=== PATIENT | male | born 1955 | race Caucasian/White ===

== ENCOUNTER 2025-01-09 17:05 | Emergency (ER) | payer MEDICARE ==
[~2025-01-09] VITALS: Ht 182.9 cm; Wt 94.6 kg
[2025-01-09 17:12] VITALS: BP 152/103; PULSE 139; RESP 16; TEMP 98.6; O2SAT 98
[2025-01-09] MEDS ORDERED: LOP25T PO (17:36)
--- NOTE | 2025-01-09 17:36 | Physician Documentation ---
HPI ~ General Chief Complaint: Medication Refill Stated Complaint: MED REQUEST Time Seen by MD: 17:32 History of Present Illness HPI Comments [age] year male who presents to the emergency department requesting a prescription refill until he returns to [facility] in a couple of days. Patient takes metoprolol 12.5 mg twice a day and has been without his medication for one day. Presents to the emergency department with tachycardia and has not had his morning dose. No associated symptoms such as shortness of breath, palpitations and/or near-syncope. Reports does well while taking his medications. Looks forward to returning back to his home state and just a couple of days. Medication Reconciliation Allergies: Coded Allergies: No Known Allergies (Unverified , 01/09/25) Scheduled Metoprolol Tartrate* (Lopressor tablet*), 0.5 TABLET PO BID Review of Systems All Other Systems at this time: Reviewed and Negative Physical Exam Physical Exam Vital Signs: RN Vital Signs have been reviewed: Yes, Temperature: 98.6, Source: Oral, Heart Rate: 139, Respiratory Rate: 16, BP: 152/103, Pulse Oximetry: 98, W eight: 94.600 Oxygen Flow Rate: 0 General Appearance: alert, WD/WN, no apparent distress Pupils/EOM/Fundus: PERRLA Oropharynx: normal inspection Neck: trachea midline Respiratory: no respiratory distress Cardiovascular: tachycardia Gastrointestinal: non-tender Extremities: normal inspection Neurologic: oriented x4 Motor / Sensory: no motor deficit Thought/Hallucinations: normal thought pattern Affect: appropriate Skin: warm/dry, normal color Progress Results/Orders Results/Orders Vital Signs 01/09/25 17:12 Temp 98.6 Pulse 139 Resp 16 B/P (MAP) 152/103 Pulse Ox 98 O2 Flow Rate 0 Medical Decision Making Additional information obtaine: old records Findings Examination history obtained. We will provide patient with breakthrough medication refill prescription. No clinical suspicion for hypertensive urgency, hypertensive emergency your tachycardia other than an known etiology. Patient's safely discharged in the emergency department to obtain prescriptions. Differential Dx:Considerations: Include: Adverse circumstances, Economic, Psychosocial, Medical services unavail., Medication refill, Medication non- compliance Departure Disposition: HOME / SELF CARE / HOMELESS Impression: Primary Impression: Medication refill Additional Impression: Hypertension Qualified Codes: I10 - Essential (primary) hypertension Condition: Stable Discharge Instructions: Medicine Refill at the Emergency Department Additional Instructions: Please begin medications as directed by your primary care physician. Make follow up appointment upon you return home. Return in the emergency department interim as needed. Thank you for visiting [facility]. Referrals: NO PRIMARY CARE PROVIDER (PCP) Prescriptions Metoprolol Tartrate* (Lopressor tablet*) 25 Mg Tablet 0.5 TABLET PO BID, #60 TABLET 0 Refills Prov: CHADWICK VARELA 01/09/25 Education Educated: Patient Educated regarding: diagnosis, treatment, prognosis, need for follow up Signature Scribe Signature: . Attestation: . CHADWICK VARELA PAC Jan 09, 2025 17:36
== END 2025-01-09 17:40 | disposition home or self-care (01) ==
LOC: ER 17:06
DX: I10 Essential (primary) hypertension (principal); Z76.0 Encounter for issue of repeat prescription; Z79.899 Other long term (current) drug therapy
CPT/HCPCS: 99282

== ENCOUNTER 2025-01-09 18:46 | Emergency (ER) | payer MEDICARE ==
[~2025-01-09] VITALS: Ht 182.9 cm; Wt 90.1 kg
[~2025-01-09 18:46] MED LIST: LOP25T PO
[2025-01-09 18:50] VITALS: BP_DIAS 101; RESP 16; TEMP 97.4; O2SAT 98
--- NOTE | 2025-01-09 18:59 | Physician Documentation ---
HPI ~ General Chief Complaint: Medication Request Stated Complaint: MED REQUEST Time Seen by MD: 18:49 History of Present Illness HPI Comments 69-year-old male returns to the emergency department because he was unable to obtain his prescriptions due to the pharmacy being closed. Patient is seen early in the emergency department and need prescription refill on metoprolol. Discharged with prescription yet pharmacy unavailable for him tonight's where returns for single dose. Patient remains asymptomatic at heart rate with tachycardia. Medication Reconciliation Allergies: Coded Allergies: No Known Allergies (Unverified , 01/09/25) Scheduled Metoprolol Tartrate* (Lopressor tablet*), 0.5 TABLET PO BID Review of Systems All Other Systems at this time: Reviewed and Negative Constitutional: Reports: see HPI Physical Exam Physical Exam Vital Signs: RN Vital Signs have been reviewed: Yes, Temperature: 97.4, Source: Temporal, Heart Rate: 134, Respiratory Rate: 16, BP: 155/101, Pulse Oximetry: 98, Weight: 90.100 General Appearance: alert, WD/WN, no apparent distress Pupils/EOM/Fundus: PERRLA Respiratory: no respiratory distress Cardiovascular: tachycardia Gastrointestinal: non-tender Neurologic: oriented x4 Motor / Sensory: no motor deficit, no sensory deficit Skin: warm/dry Progress Results/Orders Results/Orders Completed Orders - CHADWICK VARELA Metoprolol Tartrate Tablet (Lopressor Ta (01/09/25 19:00) Medications Received in ER Medications (Trade) Dose Ordered Sig/Nav Route PRN Reason Start Time Stop Time Status Last Admin Dose Admin (Lopressor tablet) 25 mg ONCE ONCE PO 01/09/25 19:00 01/09/25 19:01 DC 01/09/25 19:09 25 MG Vital Signs 01/09/25 01/09/25 18:50 19:09 Temp 97.4 Pulse 134 134 Resp 16 B/P (MAP) 155/101 Pulse Ox 98 Medical Decision Making Additional information obtaine: old records Findings One time dose metoprolol provided for patient. He will obtain prescriptions from the pharmacy in the morning. Safely discharged in the emergency depart ment. Differential Dx:Considerations: Include: Medical services unavail., Medication refill Departure Disposition: HOME / SELF CARE / HOMELESS Impression: Primary Impression: Tachycardia Condition: Improved Discharge Instructions: Medicine Refill at the Emergency Department, Medical Screening Exam Referrals: NO PRIMARY CARE PROVIDER (PCP) Education Educated: Patient Educated regarding: diagnosis, treatment, prognosis Signature Scribe Signature: . Attestation: . CHADWICK VARELA PAC Jan 09, 2025 18:59
[2025-01-09 19:09] VITALS: BP_SYST 154; PULSE 134
== END 2025-01-09 19:13 | disposition home or self-care (01) ==
LOC: ER 18:47
DX: R00.0 Tachycardia, unspecified (principal); Z76.0 Encounter for issue of repeat prescription; Z79.899 Other long term (current) drug therapy
CPT/HCPCS: 99283